=== PATIENT | male | born 2000 | race Caucasian/White ===

== ENCOUNTER 2023-12-07 16:01 | Emergency (ER) | payer OTHER, SELFPAY ==
[2023-12-07 16:02] VITALS: BP 130/88; PULSE 77; RESP 14; TEMP 36.2; O2SAT 100; BMI 24.0
--- NOTE | 2023-12-07 16:27 | EDS_ITS ---
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 He was not wearing a cup. He states his scrotum was sore at that time, but he was able to continue playing and then really did not have any pain. Later after the game, he noticed that there was some soreness, symptoms more on the right. It persisted this morning, he states it was never severe pain. It has been mild the whole time. It has not worsened. He denies any urinary symptoms or hematuria, he denies any abdominal pain, nausea, vomiting, or any other symptoms. PFSH PFSH no medical history Allergy/AdvReac Type Severity Reaction Status Date / Time No Known Allergies Allergy Verified 12/07/23 16:05 Social History Smoking Status: Never smoker ROS ROS ED Gastrointestinal Gastrointestinal: Denies abdominal pain, nausea or vomiting Genitourinary Genitourinary ED: Reports as per HPI and scrotal pain; Denies dysuria, hematuria, scrotal swelling, testicular swelling or urinary frequency Musculoskeletal Musculoskeletal: Denies back pain Integumentary Denies abscess or rash Neurologic Neurologic: Denies headache(s), paresthesias or weakness EXAM Physical Exam Const Vital Signs: 12/07/23 16:02 Temperature 97.2 F L Temperature Source Temporal Pulse Rate 77 Respiratory Rate 14 Blood Pressure 130/88 H Blood Pressure Mean 102 Pulse Ox 100 Oxygen Delivery Method Room Air Positive well nourished and well developed Constitutional Narrative: Well-appearing in no distress General Appearance ED: well developed and NAD Resp normal respiratory effort GI non-tender and non-distended Auscultation: normoactive bowel sounds Palpation: soft Narrative: Penis and scrotum normal-appearing, normal lie of testicles, no tenderness of either testicle. He states it is sore, but I am not creating pain with palpation. Cremasterics normal. No swelling. Slight asymmetry, but appears to be within normal limits, patient unsure if that is normal for him or not. Testes: Negative for testicular swelling Back/Spine Back/Spine Narrative: F ROM Extremity Extremity Narrative: Contusion right anterolateral thigh, compartments soft. Full range of motion throughout all 4 extremities. General Extremety ED: Negative for tenderness Neuro oriented x3, CN's II-XII intact bilaterally, moves all extremities, no focal motor deficits and no sensory deficits noted Psych mental status grossly normal Skin Lesions: no lesions Rashes: no rashes MDM MDM MDM Narrative Medical decision making narrative: Patient reassured and offered some ibuprofen. I think getting an ultrasound would be reasonable if his pain persist, but I do not think he needs an emergent ultrasound to evaluate for torsion. I recommend returning immediately if his pain suddenly worsens. I think he is at very low risk of having a testicular rupture since he has no edema and I cannot reproduce tenderness on his testicles. Ultrasound is not available at this time, for this reason I am setting up for an outpatient ultrasound to be done tomorrow morning. He is comfortable with that plan. Discharge Plan Triage Chief Complaint: Complaint ED Provider: Amado Kaiser Dx/Rx/DC Orders Clinical Impression: Contusion of scrotum and testes, initial encounter Instructions: ED Contusion Testicles Scrotum Stand Alone Forms: ED Work / School Excuse Other Ambulatory Orders: Testicular with Arterial Flow (Routine) Facility: [facility] - Location: [facility] Ordered By: Dr. Amado Kaiser Primary Care Provider: Care Physician,No [facility] - 2 Days (follow up for results at least one day after ultrasound) Disposition Disposition: Home, Self Care
[2023-12-07] MEDS: Ibuprofen 600 MG Tablet PO (16:37)
== END 2023-12-07 16:39 | disposition home or self-care (01) ==
LOC: ED 16:32
PROVIDERS: Emergency Provider Emergency Medicine; Visit Provider Emergency Medicine
DX: S30.22XA Contusion of scrotum and testes, initial encounter (principal); W21.89XA Striking against or struck by other sports equipment, initial encounter; Y93.65 Activity, lacrosse and field hockey
CPT/HCPCS: 99282; A4216

== ENCOUNTER 2023-12-08 19:23 | Emergency (ER) | payer OTHER, SELFPAY ==
[2023-12-08 19:23] VITALS: BP 149/94; PULSE 78; RESP 16; TEMP 36.3; O2SAT 99; BMI 24.8
[2023-12-08 20:06] LABS: Bacteria 0 SEEN /hpf (None Seen); Mucous, Urine 0 SEEN /hpf (<or=2+); Red Blood Cells-Urine 0 SEEN /hpf (0-5); Squamous Epithelial Cells - UA 0 SEEN /hpf (0-5); White Blood Cells 0 SEEN /hpf (0-5)
[2023-12-08 20:10] LABS: Color, Urine Yellow (Yellow); Glucose, Dipstick Normal (Normal); Ketone-Dipstick Negative (Negative); Leukocyte Esterase-Dipstick Negative /ul (Negative); Nitrite-Dipstick Negative (Negative); Occult Blood-Urine Negative /ul (Negative); Protein-Dipstick Negative (Negative); Urine Bilirubin Dipstick Negative (Negative); Urine Clarity Clear (Clear); Urine Urobilinogen Normal (Normal); Urine pH 6.5 (5.0 - 8.0)
--- NOTE | 2023-12-08 22:52 | US_ITS ---
EXAM: US SCROTUM CLINICAL INDICATION: left testicle pain-s/p trauma TECHNIQUE: Realtime ultrasound of the testicles was performed with grayscale and Color Doppler analysis. COMPARISON: No relevant prior studies available. FINDINGS: RIGHT TESTICLE: 4.7 x 2.7 x 1.9 cm. Normal in size and echotexture. No focal lesion. Normal blood flow is present. LEFT TESTICLE: Peripheral heterogeneous lesions within the left testicle, the largest measuring 1.6 x 1.2 x 1.0 cm, and at least 3 others measuring up to 1 cm. 5.2 x 2.9 x 2.5 cm. Normal blood flow is present. EPIDIDYMIDES: Unremarkable. Normal in size and echotexture, without focal lesion. Normal color Doppler flow pattern in the epididymis. SCROTUM: Moderate left hydrocele. No varicocele. US/Testicular with Arterial Flow IMPRESSION: Peripheral heterogeneous lesions within the left testicle, the largest measuring 1.6 x 1.2 x 1.0 cm, and at least 3 others measuring up to 1 cm. These likely represent intratesticular hematomas given the history of trauma. A follow-up scrotal ultrasound in 2-4 weeks is recommended to exclude an underlying tumor. Electronically Signed: Bob Guaman MD at 0:13 EDT ,
[2023-12-08 23:23] VITALS: BP 111/70; PULSE 60; RESP 18; O2SAT 100
--- NOTE | 2023-12-09 00:28 | EDS_ITS ---
HPI History of Present Illness Chief Complaint: Male Pain/Injury Narrative Narrative: 23-year-old male presenting with left testicular pain. He states initially he was struck in the bilateral testicles with a lacrosse stick and had pain in both testicles however the pain in the right testicle has improved and now there is acute worsening pain and left testicle. He states he had not had any swelling. No new trauma. No numbness or tingling. He states it feels like it is radiating to the left inguinal region. Patient has been urinating normally without dysuria, hematuria. Patient was seen in the ER 2 days ago for similar symptoms and was ordered an outpatient ultrasound at that point and he did not follow-up for the ultrasound. PFSH PFS Home Medications NK 12/08/23 [History Last Taken Unknown] Allergy/AdvReac Type Severity Reaction Status Date / Time No Known Allergies Allergy Verified 12/08/23 19:23 Social History Smoking Status: Never smoker ROS ROS ED Constitutional Constitutional ED: Denies chills, fever(s) or sweats Eyes Eyes: Denies blurry vision or change in vision ENT ENT ED: Denies ear pain or sore throat Cardiovascular Cardiovascular: Denies chest pain, palpitations or racing heartbeat Respiratory/Chest Respiratory/Chest: Denies cough, dyspnea or sputum Gastrointestinal Gastrointestinal: Denies abdominal pain, constipation, diarrhea, nausea or vomiting Genitourinary Genitourinary ED: Reports other Details: Left testicular pain ; Denies dysuria, hematuria, testicular mass or urinary frequency Musculoskeletal Musculoskeletal: Denies arthralgias, myalgias or neck pain Integumentary Denies abscess, Abrasions or rash Neurologic Neurologic: Denies headache(s), paresthesias or weakness Psychiatric Psychiatric: Denies anxiety, depression, suicidal ideation or suicidal thoughts Endocrine Endocrinology: Denies polydipsia or polyuria EXAM Physical Exam Const Vital Signs: 12/08/23 19:23 12/08/23 23:23 Temperature 97.3 F L Temperature Source Temporal Pulse Rate 78 60 Respiratory Rate 16 18 Blood Pressure 149/94 H 111/70 Blood Pressure Mean 112 83 Pulse Ox 99 100 Oxygen Delivery Method Room Air Positive well nourished General Appearance ED: NAD HEENT normocephalic and atraumatic Resp normal respiratory effort Cardio regular rate and regular rhythm Narrative: Left testicle tender to palpation and slightly firmer than the contralateral testicle. No crepitance, laceration, bruising, edema. Scrotum: testes descended bilaterally, cremasteric reflex present and tenderness; Negative for erythema, edematous or scrotal swelling Testes: Negative for testicular mass, blue dot sign or high-riding testicle Neuro oriented x3 Sensorium / Orientation: alert Motor Exam: strength 5/5 throughout Psych mental status grossly normal MDM MDM MDM Narrative Medical decision making narrative: Patient had testicular ultrasound today which was negative for testicular torsion. It shows that there are some peripheral heterogeneous masses in the left testicle consistent with small intratesticular hematomas. Patient counseled on findings. He is to wear tight underwear, use Tylenol or ibuprofen. He was given follow-up with urology. Urinalysis was performed today which was negative for acute findings. Recommend patient follow-up for repeat ultrasound in 2 to 4 weeks. Impression: 1. Left testicular hematomas 2. Scrotal contusion Lab Data Attestation: I reviewed the patient's lab results. Labs: Laboratory Results - last 24 hr 12/08/23 20:00 Urine Color Yellow Urine Clarity Clear Urine pH 6.5 Ur Specific [place] 1.010 Urine Protein Negative Urine Glucose (UA) Normal Urine Ketones Negative Urine Occult Blood Negative Urine Nitrite Negative Urine Bilirubin Negative Urine Urobilinogen Normal Ur Leukocyte Esterase Negative Urine RBC 0 SEEN Urine WBC 0 SEEN Ur Squamous Epith Cells 0 SEEN Urine Bacteria 0 SEEN Urine Mucus 0 SEEN Radiography Diagnostic Testing: Clinical Impression(s) from Imaging Studies Testicular Ultrasound 12/08/23 22:52 IMPRESSION: Peripheral heterogeneous lesions within the left testicle, the largest measuring 1.6 x 1.2 x 1.0 cm, and at least 3 others measuring up to 1 cm. These likely represent intratesticular hematomas given the history of trauma. A follow-up scrotal ultrasound in 2-4 weeks is recommended to exclude an underlying tumor. Electronically Signed: Bob Guaman MD at 0:13 EDT , Discharge Plan Triage Chief Complaint: Male Pain/Injury ED Provider: Howard Browning Dx/Rx/DC Orders Clinical Impression: Hematoma of testis, Contusion of scrotum and testes, initial encounter Instructions: ED Contusion Testicles Scrotum Prescriptions: No Action NK Primary Care Provider: Care Physician,No Primary Referrals: Cruz Scott MD [Med Staff - Active Staff] - 3-5 Days Care Physician,No Primary [Primary Care Provider] - Disposition Disposition: Home, Self Care
[2023-12-09 00:42] VITALS: BP 124/66; PULSE 66; RESP 16; TEMP 37; O2SAT 99
== END 2023-12-09 00:43 | disposition home or self-care (01) ==
PROVIDERS: Emergency Provider Student in an Organized Health Care Education/Training Program; Visit Provider Student in an Organized Health Care Education/Training Program
DX: S30.22XA Contusion of scrotum and testes, initial encounter (principal); W21.89XA Striking against or struck by other sports equipment, initial encounter; Y93.65 Activity, lacrosse and field hockey
CPT/HCPCS: 76870; 81001; 93976; 99282